=== PATIENT | male | born 1980 | race Caucasian/White ===

== ENCOUNTER 2019-05-08 08:05 | Emergency (ER) | payer OTHER, MEDICAID, SELFPAY ==
[2019-05-08 08:29] VITALS: BP 150/101; PULSE 115; RESP 20; O2SAT 96
--- NOTE | 2019-05-08 08:40 | ED_ITS ---
HPI - Psych General Chief Complaint: Psychiatric Symptoms Stated Complaint: LOLA Time Seen by Provider: 05/08/19 08:22 Source: patient and police Mode of arrival: other Limitations: no limitations History of Present Illness HPI Narrative: Patient is brought to the emergency department by police [place], talking about family members who weren't there. The patient has no complaints, and denies any symptoms that he has asked about, but also is not able to offer any further information about his condition tonight. Please state that they have picked the patient up once before and that there is no record of him being mentally unsound. They have not been able to get into the patient's phone to make contact with any of his contacts, and so at this point, no further information is available. They state the patient has been ambulatory in was found without shoes on. He has been anxious to leave, but has been nonviolent. No other complaints at this time. Review of Systems Review of Systems ROS Unobtainable: All systems reviewed & are unremarkable except as noted in HPI and below Constitutional Constitutional: Denies chills, Denies fatigue, Denies fever(s), Denies frequent falls, Denies lethargy and Denies weakness Eyes Eyes: Denies change in vision, Denies eye discharge, Denies irritation and Denies loss of vision ENT Ears, Nose, Mouth, and Throat: Denies change in voice, Denies dizziness, Denies neck pain, Denies sore throat and Denies throat swelling Cardiovascular Cardiovascular: Denies chest pain, Denies irregular heart rhythm, Denies lightheadedness, Denies palpitations, Denies dyspnea, Denies dyspnea on exertion and Denies orthopnea Respiratory Respiratory: Denies cough, Denies dyspnea, Denies dyspnea on exertion and Denies wheezing Gastrointestinal Gastrointestinal: Denies abdominal pain, Denies change in bowel habits, Denies diarrhea, Denies nausea and Denies vomiting Genitourinary Genitourinary: Denies hematuria, Denies flank pain, Denies urinary incontinence and Denies urinary urgency Musculoskeletal Musculoskeletal: Denies back pain, Denies muscle weakness, Denies neck pain, Denies numbness and Denies tingling Integumentary/Breasts Skin/Breast: Denies pruritus, Denies erythema, Denies rash and Denies wounds Neurologic Neurologic: Denies behavioral changes, Denies confusion, Denies dizziness, Denies frequent falls, Denies loss of vision, Denies numbness, Denies tingling and Denies weakness Psychiatric Psychiatric: Denies anxiety, Denies behavioral changes, Denies confusion, Denies depression, Denies homicidal ideation and Denies suicidal ideation Endocrine Endocrine: Denies fatigue, Denies flushing and Denies palpitations Hematologic/Lymphatic Hematologic/Lymphatic: Denies easy bruising Allergic/Immunologic Allergic/Immunologic: Denies urticaria, Denies throat swelling and Denies wheezing Patient History Medical History Healthy adult (Acute) Surgical History No pertinent past surgical history (Acute) Social History Smoking Status: Unknown if ever smoked Smoking Status: Unknown if ever smoked Exam Initial Vital Signs Initial Vital Signs: Vital Signs Pulse Rate 115 H 05/08/19 08:29 Respiratory Rate 20 05/08/19 08:29 Blood Pressure 150/101 H 05/08/19 08:29 Pulse Oximetry 96 05/08/19 08:29 Const General: cooperative and well developed Nutritional Appearance: well nourished [facility] Head: normocephalic and atraumatic Ears: external ears normal Nose: external nose normal and No nasal discharge Face and sinus: face symmetric and No dry mucous membranes Mouth: oral mucosae normal and moist mucous membranes Teeth and gingiva: dentition normal Throat: uvula midline Eyes General: appearance normal, both eyes and all related structures Eyelids: eyelids normal Conjunctivae: conjunctivae normal Sclera: sclerae normal Pupils: PERRL EOM: EOM intact bilaterally Neck Neck: normal visual inspection, trachea midline, No lymphadenopathy, No midline deformity and No JVD Lymphatic: No lymphedema Chest Chest: normal inspection of the chest Resp Effort & Inspection: normal respiratory effort, able to speak in complete sentences, no respiratory distress and no use of accessory muscles Auscultation: clear to auscultation bilaterally, no rales, no rhonchi and no wheezes Cardio Rate: regular rate Rhythm: regular rhythm Heart Sounds: no click, no gallops, no murmurs and no rubs Pulses: normal peripheral pulses Back/Spine/Pelvis Back: No CVA tenderness Cervical Spine: cervical ROM normal and No pain with cervical ROM Thoracic/Lumbar Spine: thoracic and lumbar spine normal to inspection Skin General: no rashes or lesions noted, No jaundice and No petechiae Neuro General: alert, awake, gait normal and no focal motor deficits Cranial Nerves: CN's II-XI intact bilaterally Cognition: abnormal cognition Speech: speech normal Motor: muscle tone normal throughout Sensory Exam: no sensory deficits noted (Grossly intact) Extrem General: full ROM, no clubbing, cyanosis or edema, no pedal edema and no calf tenderness Psych Appearance: well kempt Mental Status: mental status grossly normal Attitude: cooperative Thought Content: normal and suicidality Judgment: judgment good Course Course Course Narrative: We did attempt to figure out who the patient's family was and urine drug screen was also obtained, though it took hours for the patient to give a urine sample. In the meantime, the patient was kept in the emergency department for number of hours, as none of his family members could come and get him. He attempted repeatedly to slam the door open with his body, as we had had to apply seclusion restraints to keep the patient from eloping, as he was not in a mind set to keep himself safe. At that point, we did after call for police assistance to get the patient into bed and apply 4 point restraints. The patient was also given Ativan 2 mg and Haldol 5 mg IM. After this, the patient did sleep. When he woke, he was coherent and cooperative and mentating well. He did not admit to any drug use or alcohol use the previous night and said he only had a vague recollection of what had happened. He gave a urine at the very end of his stay, and this was found to be positive for amphetamines and ecstasy. Patient was found to be negative for alcohol in his blood. The patient was able to call a friend come pick him up. We've discussed home management of the symptoms, as well as the usual indications for return. Orders Ordered: ED Orders 05/08/19 17:00 Urine Drug Screen, Rapid Stat Discontinued Medications Haloperidol (Haldol) 5 mg IM NOW ONE Stop: 05/08/19 09:51 Last Admin: 05/08/19 10:08 Dose: 5 mg Documented by: TORY Lorazepam (Ativan) 2 mg IM NOW ONE Stop: 05/08/19 09:51 Last Admin: 05/08/19 10:09 Dose: 2 mg Documented by: TORY Vital Signs Vital signs: Vital Signs - 8 hr 05/08/19 08:29 Pulse Rate 115 H Respiratory Rate 20 Blood Pressure 150/101 H Pulse Oximetry 96 [facility] - Psych Medical Records Attestation: I reviewed the patient's medical records. Lab Data Attestation: I reviewed the patient's lab results. Labs: Lab Results 05/08/19 05/08/19 Range/Units 09:18 17:00 U Opiates 300ng/mL cut Negative (Negative) Ur Oxycodone Screen Negative (Negative) Urine Methadone Screen Negative (Negative) Ur Barbiturates Screen Negative (Negative) U Tricyclic Antidepress Negative (Negative) Ur Phencyclidine Scrn Negative (Negative) Ur Amphetamines Screen Positive H (Negative) U Methamphetamines Scrn Positive H (Negative) Ur MDMA Scrn (Ecstasy) Positive H (Negative) U Benzodiazepines Scrn Negative (Negative) Urine Cocaine Screen Negative (Negative) U Marijuana (THC) Screen Negative (Negative) Ethyl Alcohol < 10 ( - 10) mg/dL Discharge Plan Departure Patient Disposition: Home Clinical Impression: Acute alteration in mental status Discharge Date/Time: 05/08/19 17:58 Instructions: DI for Altered Mental Status Referrals: [facility] [Provider Group]
--- NOTE | 2019-05-08 08:45 | PC.NURSE ---
in seclusion room at this time. for flight risk
--- NOTE | 2019-05-08 08:55 | PC.NURSE ---
per grey officer mother phone. 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 states, he is just released from [facility] on probation, mother unable to cigar packer and picker pt , she is in [place]. +takes amphetamine, and alcohol. unknown psych hx.
[2019-05-08 09:14] VITALS: TEMP 36.7
--- NOTE | 2019-05-08 09:21 | PC.NURSE ---
standing at the door. looking out. 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
[2019-05-08 09:38] LABS: Ethanol (ETOH) < 10 mg/dL
--- NOTE | 2019-05-08 09:44 | PC.NURSE ---
kicking front door. police made aware, dr garcia made aware, plan 4 pts restraint
--- NOTE | 2019-05-08 09:57 | PC.NURSE ---
4 pts applied, with multiple staff.
[2019-05-08 10:00] VITALS: BP 104/61; PULSE 78; RESP 12; O2SAT 98
--- NOTE | 2019-05-08 10:00 | PC.NURSE ---
continue to be yelling out danii
[2019-05-08] MEDS: HALOPERIDOL 5 MG/ML VIAL IM (10:08)
[2019-05-08] MEDS: LORazepam 2 MG/ML INJ IM (10:09)
--- NOTE | 2019-05-08 10:16 | PC.NURSE ---
remain with 4 pts.
--- NOTE | 2019-05-08 10:25 | PC.NURSE ---
reposition pt with 3 staff, no injuries found.
--- NOTE | 2019-05-08 10:44 | PC.NURSE ---
830 restraint order please. 4 pts 957am. medicated at 1004
--- NOTE | 2019-05-08 10:49 | PC.NURSE ---
released 4 pts, warm blanket provided, pt with symmetrical respiration, skin warm dry pink.
--- NOTE | 2019-05-08 10:59 | PC.NURSE ---
sleeping on supine position.
[2019-05-08 11:29] VITALS: BP 111/67; PULSE 90; O2SAT 96
--- NOTE | 2019-05-08 13:54 | PC.NURSE ---
reposition self in bed.
--- NOTE | 2019-05-08 16:19 | PC.NURSE ---
states, he is supposed to be in [facility].
[2019-05-08 17:12] LABS: Ur Creatinine Normal (Normal); Ur Specific Gravity Normal (Normal); Urine pH Normal (Normal)
[2019-05-08 17:13] LABS: UR Morphine/Opiate cutoff 300 Negative (Negative); Urine Amphetamines Positive (Negative); Urine Barbiturates Negative (Negative); Urine Benzodiazepines Negative (Negative); Urine Cocaine Negative (Negative); Urine MDMA Positive (Negative); Urine Methadone Negative (Negative); Urine Methamphetamines Positive (Negative); Urine Oxycodone Negative (Negative); Urine Phencyclidine Negative (Negative); Urine Tetrahydrocannabinol Negative (Negative); Urine Tricyclic Antidepressant Negative (Negative)
== END 2019-05-08 17:58 | disposition home or self-care (01) ==
PROVIDERS: Emergency Provider Emergency Medicine
DX: R41.82 Altered mental status, unspecified (principal)
CPT/HCPCS: 36415; 80305; 80320; 96372; 99285; J1630; J2060